=== PATIENT | male | born 1990 ===

== ENCOUNTER 2022-05-10 14:02 | Observation (INO) | payer SELFPAY ==
[2022-05-10] VITALS (7 sets, daily range): BP systolic 114–131; BP diastolic 59–67; PULSE 78–89; TEMP 97.7
[~2022-05-10] VITALS: Ht 172.7 cm; Wt 75.6 kg
[2022-05-10 14:37] LABS: COLLECTION METHOD CLEAN CATCH
[2022-05-10 14:42] LABS: BASO # 0.1 K/mm3 (0.0-0.2); BASO % 0.3 % (0.0-2.0); EOS # 0.1 K/mm3 (0.0-0.7); EOS % 0.3 % (0.0-4.0); GRAN # 15.2 K/mm3 (1.4-6.5); GRAN % 88.2 % (42.2-75.2); HEMATOCRIT 41.3 % (42.0-52.0); HEMOGLOBIN 14.4 g/dl (13.5-18.0); LYMPH # 1.1 K/mm3 (1.2-3.4); LYMPH % 6.1 % (20.0-51.0); MEAN CELL VOLUME 89 fl (80.0-100.0); MEAN CORPUSCULAR HEMOGLOBIN 31 pg (27-31); MEAN CORPUSCULAR HGB CONC 35 g/dl (33.0-37.0); MEAN PLATELET VOLUME 9.4 fl (7.4-10.4); MONO # 0.8 K/mm3 (0.1-0.6); MONO % 4.8 % (1.7-9.3); PLATELET COUNT 325 K/mm3 (130-400); RED BLOOD COUNT 4.62 M/mm3 (4.20-5.60); REDCELL DISTRIBUTION WIDTH-CV 12.8 % (11.5-14.5)
[2022-05-10 14:43] LABS: URINE APPEARANCE Clear (CLEAR/HAZY); URINE COLOR Yellow (YELLOW)
[2022-05-10 14:44] LABS: PH 7.5 (5.0-8.5); URINE BLOOD Negative (NEGATIVE); URINE GLUCOSE Negative (NEGATIVE); URINE KETONE Negative (NEGATIVE); URINE NITRATE Negative (NEGATIVE); URINE PROTEIN(semi-quant) Negative (NEGATIVE); URINE UROBILINOGEN 0.2 E.U/dL (0.2-1.0)
[2022-05-10 14:49] LABS: MUCOUS Present (NOT PRESENT); SQUAMOUS EPITHELIAL 0-2 /hpf (0-10); URINE BACTERIA None Seen /hpf (NONE SEEN); URINE RBC 0-2 /hpf (0-2)
[2022-05-10 15:01] LABS: ALBUMIN 4.3 gm/dL (3.5-5.0); C-REACTIVE PROTEIN 2.17 mg/dL (0.00-0.50); CALCIUM 9.4 mg/dL (8.4-10.2); CREATININE, serum 0.81 mg/dL (0.72-1.25); TOTAL PROTEIN 7.7 gm/dL (6.2-8.1)
--- NOTE | 2022-05-10 20:00 | NUR ---
SHIFT REPORT FROM ALEXANDER SOLORZANO. PATIENT IN BED ON ROOM ENTRY. MED RX, ADMISSION ASSESSMENT, AND PHYSICAL ASSESSMENT COMPLETED WITH HELP OF LASER BEAM COLOR SCANNER OPERATOR. STARTED ON IVF TO R AC. CONSENT SIGNED AND IN CHART PER ED NURSE. DENIES ADDITIONAL NEEDS. PATIENT DOWN TO OR WITH SALT LIFTER.
--- NOTE | 2022-05-10 22:00 | NUR ---
PATIENT UP FROM PACU VIA BED. ALERT AND ORIENTED. POST OP VSS. DENIES PAIN CONTROL NEEDS. REQUESTS TO SPEAK WITH HIS . DENIES ADDITIONAL NEEDS.
[2022-05-11 00:45] VITALS: BP 110/62; PULSE 91
[2022-05-11 01:45] VITALS: BP 98/58; PULSE 92
[2022-05-11 03:26] VITALS: BP 116/64; PULSE 80; TEMP 98.6
[2022-05-11 03:54] VITALS: BP 109/58; PULSE 91
[2022-05-11 07:43] VITALS: BP 96/50; PULSE 84; TEMP 98
[2022-05-11] MEDS ORDERED: NORCO 325 MG-51 TAB PO ×3 (09:45→10:28)
--- NOTE | 2022-05-11 10:25 | NUR ---
CLINICAL SCIENCE LIAISON SERVICE USED TO REVIEW DISCHARGE INSTRUCTIONS AND EDUCATION WITH PATIENT. PATIENT ADIVSED EVERYTHING DR JOSÉ PLACED IN DISCHARGE INSTRUCITONS. RN ALSO INSTRUCTED HIM ON SIGNS AND SYMPTOMS OF INFECTION AND WHEN TO CALL PHYSICIAN. PATIENT VERBLAIZED UNDERSTANDING.
--- NOTE | 2022-05-11 10:30 | NUR ---
SPOKE WITH SW THAT PATIENT MENTIONED IN DISCHARGE HE MAY BE UNABLE TO AFFORD HIS PRESCRIPTION. NOVA TO [place] WITH PHYSICAN REGARDING CHANGING PATIENTS SCRIPT TO [facility] SUPPLY HIM WITH A VOUCHER FOR MEDICATION.
--- NOTE | 2022-05-11 10:44 | NUR ---
Interface Control Officer met with patient in response to social service consult as patient is self pay and has requested information about financial assistance. Patient lives in [place] with his , Niecy who is also admitted to the hospital as she just delivered their baby. Patient stated he was having abdominal pain which resulted in him requiring surgery. Patient does not have a primary care provider but was open to follow up at [facility]. Patient is in need of a medication voucher for his pain medication. SW faxed voucher to [employer] for $13.14. Voucher provided to patient. SW consulted Renita Financial Counselor to discuss financial assistance application. SW then contacted [facility] and requested they follow up with patient to schedule appointment. [facility] Compensation And Benefits Advisor ([phone]) utilized for intake.
--- NOTE | 2022-05-11 10:47 | NUR ---
SW GAVE RN VOUCHER FOR MEDICATION DIRECTOR REVENUE. REVIEWED WITH PATIENT WITH VETERINARY X RAY OPERATOR SERVICE TO TAKE PAPER VOUCHER TO [facility], HIGHLIGHTED ON THE PAPER AND HE WILL BE ABLE TO DIRECTOR REVENUE HIS PRESCRIPTION AT NO COST TO HIM. PATIENT VERBALIZED UNDERSTANDING.
--- NOTE | 2022-05-11 10:48 | NUR ---
PATIENT TAKEN DOWN STAIRS BY RN STUDENT TO HIS WIFES ROOM ON THE OB UNIT.
--- NOTE | 2022-05-11 10:49 | NUR ---
PATIENT LEFT IN STABLE CONDITION.
== END 2022-05-11 10:49 | disposition home or self-care (01) ==
LOC: COL.ER 14:02 → SURG 17:41
PROVIDERS: Emergency Medicine; ADMIT Surgery
DX: K35.80 Unspecified acute appendicitis (principal); Z87.891 Personal history of nicotine dependence
CPT/HCPCS: G0378; J0690; J1100; J1885; J2270; J2405; J2543; J2704; J3010; J7030; Q9967